=== PATIENT | male | born 1965 | race African-American/Black ===

== ENCOUNTER 2017-02-14 15:36 | Inpatient (IN) | payer OTHER ==
[2017-02-14 18:05] VITALS: BMI 29.0
--- NOTE | 2017-02-14 20:15 | HP ---
CIWA Score - CIWA Score Nausea/Vomitin-Mild Nausea/No Vomiting Muscle Tremors: 3 Anxiety: 2 Agitation: 2 Paroxysmal Sweats: 1-Minimal Palms Moist Orientation: 2-Disoriented Date<2 days Tacttile Disturbances: 0-None Auditory Disturbances: 0-None Visual Disturbances: 0-None Headache: 3-Moderate CIWA-Ar Total Score: 14 Admission ROS BHS - HPI Chief Complaint: WITHDRAWAL SX Allergies/Adverse Reactions: Allergies Allergy/AdvReac Type Severity Reaction Status Date / Time No Known Allergies Allergy Verified 02/14/17 20:11 History of Present Illness: 51 YEARS OLD MALE WITH LONG HISTORY OF ALCOHOL NICOTINE COCAINE MARIJUANA DEPENDENCE HAS POSITIVE PPD, CANE AMBULATION SINCE 2004 FROM FALL LEFT ANKLE INJURY HAS DEPRESSION IS ADMITTED TO DETOX Exam Limitations: No Limitations - Ebola screening Have you traveled outside of the country in the last 21 days: No Have you had contact with anyone from an Ebola affected area: No Have you been sick,other than usual withdrawal symptoms: No Do you have a fever: No - Review of Systems Constitutional: Chills, Changes in sleep, Weight Stable EENT: reports: No Symptoms Reported Respiratory: reports: No Symptoms reported Cardiac: reports: No Symptoms Reported GI: reports: Nausea, Poor Fluid Intake, Abdominal cramping : reports: No Symptoms Reported Musculoskeletal: reports: Back Pain, Joint Pain (LEFT ANKLE), Muscle Weakness ( LEFT LEG) Integumentary: reports: No Symptoms Reported Neuro: reports: Tremors Endocrine: reports: No Symptoms Reported Hematology: reports: No Symptoms Reported Psychiatric: reports: Judgement Intact, Depressed Other Systems: Reviewed and Negative Patient History - Patient Medical History Hx Anemia: No Hx Asthma: No Hx Chronic Obstructive Pulmonary Disease (COPD): No Hx Cancer: No Hx Cardiac Disorders: No Hx Congestive Heart Failure: No Hx Hypertension: No Hx Hypercholesterolemia: No Hx Pacemaker: No HX Cerebrovascular Accident: No Hx Seizures: No Hx Dementia: No Hx Diabetes: No Hx Gastrointestinal Disorders: No Hx Liver Disease: No Hx Sexually Transmitted Disorders: No Hx Renal Disease (ESRD): No Hx Thyroid Disease: No Hx Human Immunodeficiency Virus (HIV): No Hx Hepatitis C: No Hx Depression: Yes Hx Suicide Attempt: No Hx Bipolar Disorder: No Hx Schizophrenia: No - Patient Surgical History Past Surgical History: Yes Hx Cholecystectomy: Yes (1990) Hx Orthopedic Surgery: Yes Anesthesia Reaction: No - PPD History Previous Implant?: Yes Documented Results: Positive w/o proof Implanted On Prior [facility] Admission?: No PPD to be Administered?: No - Smoking Cessation Smoking history: Current every day smoker Have you smoked in the past 12 months: Yes Aproximately how many cigarettes per day: 6 Cigars Per Day: 0 Hx Chewing Tobacco Use: No Initiated information on smoking cessation: Yes 'Breaking Loose' booklet given: 02/14/17 - Substance & Tx. History Hx Alcohol Use: Yes Hx Substance Use: Yes Substance Use Type: Alcohol, Cocaine, Marijuana Hx Substance Use Treatment: Yes - Substances Abused Alcohol Route: Oral Frequency: Daily Amount used: PINT VOLKA Age of first use: 11 Date of Last Use: 02/14/17 Family Disease History - Family Disease History Family History: Denies Family Disease History: Other: Father (NO CONTACT) Admission Physical Exam BHS - Vital Signs Vital Signs: Vital Signs - 24 hr 02/14/17 18:03 Temperature 96.7 F L Pulse Rate 74 Respiratory 18 Rate Blood Pressure 136/90 - Physical General Appearance: Yes: Nourished, Appropriately Dressed, Mild Distress, Tremorous, Irritable, Sweating, Anxious HEENTM: Yes: Hearing grossly Normal, Normal ENT Inspection, Normocephalic, Normal Voice Respiratory: Yes: Chest Non-Tender, Lungs Clear, Normal Breath Sounds, No Respiratory Distress, No Accessory Muscle Use Neck: Yes: Supple, Trachea in good position Breast: Yes: Breasts Symetrical Cardiology: Yes: Regular Rhythm, Regular Rate, S1, S2 Abdominal: Yes: Non Tender, Soft Genitourinary: Yes: Within Normal Limits Back: Yes: Normal Inspection Musculoskeletal: Yes: Gait Steady (CANE), Back pain, Muscle Pain (LEFT ANKLE) Extremities: Yes: Non-Tender, Tremors, Swelling (LEFT ANKLE) Neurological: Yes: Alert, Normal Response, Depressed Affect Integumentary: Yes: Warm Lymphatic: Yes: Within Normal Limits - Diagnostic (1) Alcohol dependence with uncomplicated withdrawal Current Visit: Yes Status: Acute (2) Cocaine dependence, uncomplicated Current Visit: Yes Status: Acute (3) Cannabis dependence, uncomplicated Current Visit: Yes Status: Acute (4) Positive PPD, treated Current Visit: Yes Status: Resolved (5) Use of cane as ambulatory aid Current Visit: Yes Status: Chronic (6) Nicotine dependence Current Visit: Yes Status: Acute Qualifiers: Nicotine product type: cigarettes Substance use status: in withdrawal Qualified Code(s): F17.213 - Nicotine dependence, cigarettes, with withdrawal (7) Depression (emotion) Current Visit: Yes Status: Suspected Qualifiers: Depression Type: dysthymia Qualified Code(s): F34.1 - Dysthymic disorder Cleared for Admission [facility] - Detox or Rehab [facility] Level of Care: Medically Managed Detox Regimen/Protocol: Librium S Breath Alcohol Content Breath Alcohol Content: 0 Urine Drug Screen - Results Drug Screen Negative: No Urine Drug Screen Results: THC-Marijuana, DEWAYNE-Cocaine
[2017-02-14] MEDS ORDERED: MAGNESIUM CITRATE 300 ML BOTTLE PO PRN (20:20)
[2017-02-14] MEDS ORDERED: LOPERAMIDE HCL 2 MG CAPSULE PO PRN (20:20)
[2017-02-14] MEDS ORDERED: hydrOXYzine PAMOATE 50 MG CAPSULE (FP) PO PRN (20:20)
[2017-02-14] MEDS ORDERED: chlordiazePOXIDE HCL 25 MG CAPSULE PO PRN (20:20)
[2017-02-14] MEDS ORDERED: diphenhydrAMINE HCL 50 MG CAPSULE PO PRN (20:20)
[2017-02-14] MEDS ORDERED: MAG HYDROX/AL HYDROX/SIMETH 30 ML UNIT-DOSE CUP PO PRN (20:20)
[2017-02-14] MEDS ORDERED: NICOTINE POLACRILEX 2 MG GUM BC PRN (20:20)
[2017-02-14] MEDS ORDERED: guaiFENesin/D-METHORPHAN HB 10 ML UNIT-DOSE CUPS PO PRN (20:20)
[2017-02-14] MEDS ORDERED: MENTHOL/PHENOL 1 EACH UD MM PRN (20:20)
[2017-02-14] MEDS ORDERED: P-EPHED 60MG/TRIPROLIDI 2.5MG TABLET PO PRN (20:20)
[2017-02-14] MEDS ORDERED: MAGNESIUM HYDROX 2400MG/30ML ORAL SUSPENSION 30 ML CUP PO PRN (20:20)
[2017-02-14] MEDS ORDERED: IBUPROFEN 400 MG TABLET (FP) PO PRN (20:20)
[2017-02-14] MEDS: ACETAMINOPHEN 325 MG TABLET (FP) PO PRN (21:19)
[2017-02-14] MEDS: chlordiazePOXIDE HCL 25 MG CAPSULE PO SCH (23:46)
[2017-02-14] MEDS: THIAMINE HCL 100 MG TABLET (FP) PO SCH (23:48)
[2017-02-15] MEDS: chlordiazePOXIDE HCL 25 MG CAPSULE PO SCH ×4 (06:18→22:29)
[2017-02-15] MEDS: ACETAMINOPHEN 325 MG TABLET (FP) PO PRN ×2 (06:18→17:52)
[2017-02-15 09:53] LABS: ALBUMIN 3.3 g/dl (3.4-5.0); ANION GAP 5 (8-16); CALCIUM 8.1 mg/dL (8.5-10.1); CO2 28 mmol/L (21-32); GLUCOSE,RANDOM 105 mg/dL (74-106)
[2017-02-15 09:54] LABS: MCH 29.5 pg (25.7-33.7); MCHC 33.5 g/dl (32.0-35.9); MEAN CELL VOLUME 88.2 fl (80-96); MEAN PLT VOLUME 9.2 fl (7.5-11.1); PLATELET COUNT 146 K/MM3 (134-434); RDW 13.8 % (11.9-15.9); WHITE BLOOD COUNT 4.1 K/mm3 (4.0-10.0)
[2017-02-15 09:57] LABS: ALK PHOS 80 U/L (45-117); BILIRUBIN,TOTAL 0.2 mg/dL (0.2-1.0); COCKROFT - GAULT 119.97; CREATININE 0.9 mg/dL (0.7-1.3); SGOT/AST 13 U/L (15-37); SGPT/ALT 12 U/L (12-78); TOT PROT 6.4 g/dl (6.4-8.2)
[2017-02-15 10:08] LABS: URINE APPEARANCE CLEAR; URINE BILIRUBIN NEGATIVE (NEGATIVE); URINE COLOR STRAW; URINE GLUCOSE (UA) NEGATIVE (NEGATIVE); URINE KETONE NEGATIVE (NEGATIVE); URINE LEUK ESTERASE NEGATIVE (NEGATIVE); URINE NITRITE NEGATIVE (NEGATIVE); URINE PROTEIN NEGATIVE (NEGATIVE); URINE UROBILINOGEN NEGATIVE E.U./dl (0.2-1.0)
--- NOTE | 2017-02-15 10:20 | PN ---
[facility] CIWA - CIWA Score Nausea/Vomitin Muscle Tremors: 3 Anxiety: 3 Agitation: 2 Paroxysmal Sweats: 1-Minimal Palms Moist Orientation: 0-Oriented Tacttile Disturbances: 1-Very Mild Itch/Numbness Auditory Disturbances: 1-Very Mild Visual Disturbances: 1-Very Mild Sensitivity Headache: 2-Mild CIWA-Ar Total Score: 17 BHS Progress Note (SOAP) Subjective: ALERT,IRRITABLE,ANXIOUS.INTERRUPTED SLEEP,TREMOR Objective: 02/15/17 10:18 Vital Signs Temperature 97.3 F L 02/15/17 10:08 Pulse Rate 63 02/15/17 10:08 Respiratory Rate 20 02/15/17 10:08 Blood Pressure 142/81 02/15/17 10:08 O2 Sat by Pulse Oximetry (%) EKG SINUS BRADYCARDIA 55/MIN NO CHEST PAIN,NO SOB,NO DIZZINESS Laboratory Last Values WBC 4.1 K/mm3 (4.0-10.0) 02/15/17 07:00 RBC 4.22 M/mm3 (4.00-5.60) 02/15/17 07:00 Hgb 12.5 GM/dL (11.7-16.9) 02/15/17 07:00 Hct 37.2 % (35.4-49) 02/15/17 07:00 MCV 88.2 fl (80-96) 02/15/17 07:00 MCHC 33.5 g/dl (32.0-35.9) 02/15/17 07:00 RDW 13.8 % (11.9-15.9) 02/15/17 07:00 Plt Count 146 K/MM3 (134-434) 02/15/17 07:00 MPV 9.2 fl (7.5-11.1) 02/15/17 07:00 Sodium 139 mmol/L (136-145) 02/15/17 07:00 Potassium 4.0 mmol/L (3.5-5.1) 02/15/17 07:00 Chloride 106 mmol/L (98-107) 02/15/17 07:00 Carbon Dioxide 28 mmol/L (21-32) 02/15/17 07:00 Anion Gap 5 (8-16) L 02/15/17 07:00 BUN 11 mg/dL (7-18) 02/15/17 07:00 Creatinine 0.9 mg/dL (0.7-1.3) 02/15/17 07:00 Creat Clearance w eGFR > 60 (>60) 02/15/17 07:00 Random Glucose 105 mg/dL (74-106) 02/15/17 07:00 Calcium 8.1 mg/dL (8.5-10.1) L 02/15/17 07:00 Total Bilirubin 0.2 mg/dL (0.2-1.0) 02/15/17 07:00 AST 13 U/L (15-37) L 02/15/17 07:00 ALT 12 U/L (12-78) 02/15/17 07:00 Alkaline Phosphatase 80 U/L (45-117) 02/15/17 07:00 Total Protein 6.4 g/dl (6.4-8.2) 02/15/17 07:00 Albumin 3.3 g/dl (3.4-5.0) L 02/15/17 07:00 LABS PENDING Assessment: 02/15/17 10:20 WITHDRAWAL SYMPTOM Plan: CONTINUE DETOX
[2017-02-15] MEDS: PRENATAL VITAMINS W/ FOLIC ACID TABLET (FP) PO SCH (10:30)
[2017-02-15] MEDS: NICOTINE 14 MG/24 HOURS TOPICAL PATCH TD SCH (10:30)
--- NOTE | 2017-02-15 10:54 | CONSULT ---
[facility] Psychiatric Consult - Data Date of interview: 02/15/17 Admission source: [facility] Identifying data: First admission to [facility] for this 51 y/o AA male seeking detox for alcohol,cocaine (crack) and marijuana dependence.Patient is , a father of three,domiciled,unemployed/disabled (fall from a ladder) and supported on SSI benefits. Substance Abuse History: - Smoking Cessation. Smoking history: Current every day smoker. Have you smoked in the past 12 months: Yes. Aproximately how many cigarettes per day: 6. Cigars Per Day: 0. Hx Chewing Tobacco Use: No. Initiated information on smoking cessation: Yes. 'Breaking Loose' booklet given : 02/14/17. - Substance & Tx. History. Hx Alcohol Use: Yes. Hx Substance Use : Yes. Substance Use Type: Alcohol, Cocaine, Marijuana. Hx Substance Use Treatment: Yes. - Substances Abused. Alcohol. Route: Oral. Frequency: Daily. Amount used: PINT VOLKA. Age of first use: 11. Date of Last Use: 02/14. Confirmed by patient. Medical History: History of orthosurgery for fracture of left ankle.Ambulates with a cane. Psychiatric History: Past history of a psychiatric hospitalization at [facility].Diagnosed with MDD.Was prescribed lexapro and trazodone (doses not recalled).Lost to follow up for past seven months.Mr Rangel used to get his outpatient psychiatric services at the [facility] organization,in the [place].He denies history of suicide attempts. Physical/Sexual Abuse/Trauma History: Patient denies. Additional Comment: Urine Drug Screen Results: THC-Marijuana, DEWAYNE-Cocaine.Noted. Mental Status Exam - Mental Status Exam Alert and Oriented to: Time, Place, Person Cognitive Function: Good Patient Appearance: Well Groomed Mood: Hopeful, Euthymic Affect: Appropriate, Normal Range Patient Behavior: Fatigued, Appropriate, Cooperative Speech Pattern: Clear Voice Loudness: Normal Thought Process: Goal Oriented Thought Disorder: Not Present Hallucinations: Denies Suicidal Ideation: Denies Homicidal Ideation: Denies Insight/Judgement: Poor Sleep: Fair Appetite: Good Muscle strength/Tone: Normal Gait/Station: Other (moves around with a cane) Psychiatric Findings - Problem List ([place] 1, 2,3) (1) Alcohol dependence with uncomplicated withdrawal Current Visit: Yes Status: Acute (2) Cannabis dependence, uncomplicated Current Visit: Yes Status: Acute (3) Cocaine dependence, uncomplicated Current Visit: Yes Status: Acute (4) Nicotine dependence Current Visit: Yes Status: Acute Qualifiers: Nicotine product type: cigarettes Substance use status: in withdrawal Qualified Code(s): F17.213 - Nicotine dependence, cigarettes, with withdrawal (5) Substance induced mood disorder Current Visit: Yes Status: Acute (6) Positive PPD, treated Current Visit: Yes Status: Resolved (7) Use of cane as ambulatory aid Current Visit: Yes Status: Chronic (8) Insomnia Current Visit: Yes Status: Acute - Initial Treatment Plan Initial Treatment Plan: Psychoeducation.Detoxification in progress.Medications ( patient's request) : trazodone 50 mg po hs.Patient is made aware of risk for priapism.He reports no prior history of adverse events from trazodone.Agrees with this careplan.Observation.
[2017-02-15 10:58] LABS: URINE BLOOD 1+ (NEGATIVE)
[2017-02-15 11:01] LABS: URINE MUCUS RARE; URINE RBC 1 /hpf (0-3); URINE WBC 1 /hpf (3-5)
--- NOTE | 2017-02-15 13:10 | EKG ---
Test Reason : Blood Pressure : / mmHG Vent. Rate : 055 BPM Atrial Rate : 055 BPM P-R Int : 124 ms QRS Dur : 088 ms QT Int : 460 ms P-R-T Axes : 051 048 047 degrees QTc Int : 440 ms SINUS BRADYCARDIA OTHERWISE NORMAL ECG NO PREVIOUS ECGS AVAILABLE BASELINE ARTIFACT Confirmed by DOMINICK DELUNA, LATIA ([id number]) on 02/15/2017 1:10:33 PM Referred By: Confirmed By:LATIA TAN MD
[2017-02-15] MEDS ORDERED: traZODone HCL 50 MG TABLET (FP) PO SCH (22:00)
[2017-02-15] MEDS: THIAMINE HCL 100 MG TABLET (FP) PO SCH (22:29)
[2017-02-16] MEDS: ACETAMINOPHEN 325 MG TABLET (FP) PO PRN ×3 (05:39→22:41)
[2017-02-16] MEDS: chlordiazePOXIDE HCL 25 MG CAPSULE PO SCH ×3 (05:41→17:44)
--- NOTE | 2017-02-16 10:06 | PN ---
S CIWA - CIWA Score Nausea/Vomitin Muscle Tremors: 3 Anxiety: 3 Agitation: 2 Paroxysmal Sweats: 2 Orientation: 0-Oriented Tacttile Disturbances: 1-Very Mild Itch/Numbness Auditory Disturbances: 1-Very Mild Visual Disturbances: 1-Very Mild Sensitivity Headache: 2-Mild CIWA-Ar Total Score: 18 BHS Progress Note (SOAP) Subjective: ALERT,IRRITABLE,ANXIOUS,INTERRUPTED SLEEP,TREMOR Objective: 02/16/17 10:04 Vital Signs Temperature 97.5 F L 02/16/17 05:51 Pulse Rate 61 02/16/17 05:51 Respiratory Rate 16 02/16/17 05:51 Blood Pressure 128/67 02/16/17 05:51 O2 Sat by Pulse Oximetry (%) Laboratory Last Values WBC 4.1 K/mm3 (4.0-10.0) 02/15/17 07:00 RBC 4.22 M/mm3 (4.00-5.60) 02/15/17 07:00 Hgb 12.5 GM/dL (11.7-16.9) 02/15/17 07:00 Hct 37.2 % (35.4-49) 02/15/17 07:00 MCV 88.2 fl (80-96) 02/15/17 07:00 MCHC 33.5 g/dl (32.0-35.9) 02/15/17 07:00 RDW 13.8 % (11.9-15.9) 02/15/17 07:00 Plt Count 146 K/MM3 (134-434) 02/15/17 07:00 MPV 9.2 fl (7.5-11.1) 02/15/17 07:00 Sodium 139 mmol/L (136-145) 02/15/17 07:00 Potassium 4.0 mmol/L (3.5-5.1) 02/15/17 07:00 Chloride 106 mmol/L (98-107) 02/15/17 07:00 Carbon Dioxide 28 mmol/L (21-32) 02/15/17 07:00 Anion Gap 5 (8-16) L 02/15/17 07:00 BUN 11 mg/dL (7-18) 02/15/17 07:00 Creatinine 0.9 mg/dL (0.7-1.3) 02/15/17 07:00 Creat Clearance w eGFR > 60 (>60) 02/15/17 07:00 Random Glucose 105 mg/dL (74-106) 02/15/17 07:00 Calcium 8.1 mg/dL (8.5-10.1) L 02/15/17 07:00 Total Bilirubin 0.2 mg/dL (0.2-1.0) 02/15/17 07:00 AST 13 U/L (15-37) L 02/15/17 07:00 ALT 12 U/L (12-78) 02/15/17 07:00 Alkaline Phosphatase 80 U/L (45-117) 02/15/17 07:00 Total Protein 6.4 g/dl (6.4-8.2) 02/15/17 07:00 Albumin 3.3 g/dl (3.4-5.0) L 02/15/17 07:00 Urine Color Straw 02/15/17 08:20 Urine Appearance Clear 02/15/17 08:20 Urine pH 6.0 (5.0-8.0) 02/15/17 08:20 Ur Specific [employer] 1.017 (1.001-1.035) 02/15/17 08:20 Urine Protein Negative (NEGATIVE) 02/15/17 08:20 Urine Glucose (UA) Negative (NEGATIVE) 02/15/17 08:20 Urine Ketones Negative (NEGATIVE) 02/15/17 08:20 Urine Blood 1+ (NEGATIVE) H 02/15/17 08:20 Urine Nitrite Negative (NEGATIVE) 02/15/17 08:20 Urine Bilirubin Negative (NEGATIVE) 02/15/17 08:20 Urine Urobilinogen Negative E.U./dl (0.2-1.0) 02/15/17 08:20 Ur Leukocyte Esterase Negative (NEGATIVE) 02/15/17 08:20 Urine RBC 1 /hpf (0-3) 02/15/17 08:20 Urine WBC 1 /hpf (3-5) 02/15/17 08:20 Ur Epithelial Cells Rare /hpf (FEW) 02/15/17 08:20 Urine Mucus Rare 02/15/17 08:20 RPR Titer Nonreactive (NONREACTIVE) 02/15/17 07:00 Assessment: 02/16/17 10:05 WITHDRAWAL SYMPTOM Plan: CONTINUE DETOX
[2017-02-16] MEDS: NICOTINE 14 MG/24 HOURS TOPICAL PATCH TD SCH (10:48)
[2017-02-16] MEDS: PRENATAL VITAMINS W/ FOLIC ACID TABLET (FP) PO SCH (10:48)
--- NOTE | 2017-02-16 14:49 | PN ---
[facility] Progress Note Note: Psychiatry Attendings's note : Called to see patient. Issue :wants trazodone 100 mg/hs. Met briefly with Mr Juan Carlos. Reports trazodone not effective at 50 mg/hs. Insists on getting back to his usual dose of 100 mg/hs. Plan : Discontinue trazodone 50 mg po hs. Start trazodone 1oo mg po hs. Reminded of priapism as a rare but potential side effect. Benign hospital course.Stable mental status.Uneventful detox. Patient is in agreement with this careplan.
[2017-02-16] MEDS: traZODone HCL 100 MG TABLET (FP) PO SCH (22:39)
[2017-02-16] MEDS: THIAMINE HCL 100 MG TABLET (FP) PO SCH (22:40)
[2017-02-16] MEDS: chlordiazePOXIDE 5 MG CAPSULE PO SCH (23:39)
[2017-02-17] MEDS: chlordiazePOXIDE 5 MG CAPSULE PO SCH ×3 (05:57→17:59)
[2017-02-17] MEDS: ACETAMINOPHEN 325 MG TABLET (FP) PO PRN ×3 (05:59→22:36)
[2017-02-17] MEDS: PRENATAL VITAMINS W/ FOLIC ACID TABLET (FP) PO SCH (10:44)
[2017-02-17] MEDS: NICOTINE 14 MG/24 HOURS TOPICAL PATCH TD SCH (10:44)
--- NOTE | 2017-02-17 11:20 | PN ---
S Progress Note (SOAP) Subjective: ALERT,IRRITABLE,ANXIOUS,INTERRUPTED SLEEP Objective: 02/17/17 11:19 Vital Signs Temperature 97.9 F 02/17/17 09:52 Pulse Rate 68 02/17/17 09:52 Respiratory Rate 20 02/17/17 09:52 Blood Pressure 144/83 02/17/17 09:52 O2 Sat by Pulse Oximetry (%) Assessment: 02/17/17 11:19 WITHDRAWAL SYMPTOM Plan: CONTINUE DETOX
[2017-02-17] MEDS: traZODone HCL 100 MG TABLET (FP) PO SCH (22:36)
[2017-02-17] MEDS: THIAMINE HCL 100 MG TABLET (FP) PO SCH (22:36)
[2017-02-17] MEDS: chlordiazePOXIDE HCL 10 MG CAPSULE PO SCH (23:46)
[2017-02-18] MEDS: chlordiazePOXIDE HCL 10 MG CAPSULE PO SCH (05:50)
[2017-02-18 06:14] VITALS: BP 105/54; PULSE 62; TEMP 97.9
--- NOTE | 2017-02-18 08:04 | PN ---
S Progress Note (SOAP) Subjective: ALERT,NO COMPLAINT Objective: 02/18/17 08:03 Vital Signs Temperature 97.9 F 02/18/17 06:13 Pulse Rate 62 02/18/17 06:13 Respiratory Rate 18 02/18/17 06:13 Blood Pressure 105/54 02/18/17 06:13 O2 Sat by Pulse Oximetry (%) Assessment: 02/18/17 08:03 DETOX COMPLETED,NO WITHDRAWAL SYMPTOM Plan: DISCHARGE TODAY,FOLLOW UP WITH AFTER CARE PROGRAM ARRANGEMENT
--- NOTE | 2017-02-18 08:09 | DS ---
[facility] Detox Discharge Summary Admission Date: 02/14/17 Discharge Date: 02/18/17 - History Present History: Alcohol Dependence, Cocaine Dependence Additional Comments: FOLLOW UP WITH AFTER CARE PROGRAM ARRANGEMENT Pertinent Past History: NICOTINE DEPENDENCE - Physical Exam Results Vital Signs: Vital Signs Temperature 97.9 F 02/18/17 06:13 Pulse Rate 62 02/18/17 06:13 Respiratory Rate 18 02/18/17 06:13 Blood Pressure 105/54 02/18/17 06:13 O2 Sat by Pulse Oximetry (%) Pertinent Admission Physical Exam Findings: WITHDRAWAL SYMPTOM - Treatment Hospital Course: Detox Protocol Followed, Detoxed Safely, Responded well, Discharged Condition Good - Medication Discharge Medications: Ambulatory Orders Trazodone HCl 100 mg PO HS #30 tablet 02/15/17 - Diagnosis (1) Alcohol dependence with uncomplicated withdrawal Current Visit: Yes Status: Acute (2) Cannabis dependence, uncomplicated Current Visit: Yes Status: Acute (3) Cocaine dependence, uncomplicated Current Visit: Yes Status: Acute (4) Insomnia Current Visit: Yes Status: Acute (5) Nicotine dependence Current Visit: Yes Status: Acute Qualifiers: Nicotine product type: cigarettes Substance use status: in withdrawal Qualified Code(s): F17.213 - Nicotine dependence, cigarettes, with withdrawal (6) Positive PPD, treated Current Visit: Yes Status: Resolved - AMA Did Patient Leave Against Medical Advice: No
[2017-02-18] MEDS: ACETAMINOPHEN 325 MG TABLET (FP) PO PRN (09:38)
== END 2017-02-18 10:41 | disposition home or self-care (01) | DRG 774 ==
LOC: YASAS 15:36 → Y6N 20:17
PROVIDERS: ADMIT Internal Medicine Addiction Medicine; ATTEND Internal Medicine Addiction Medicine
PROC: HZ2ZZZZ Detoxification Services for Substance Abuse Treatment (ICD-10-PCS; principal; 2017-02-18)
DX: F10.230 Alcohol dependence with withdrawal, uncomplicated (principal); F14.20 Cocaine dependence, uncomplicated; F12.20 Cannabis dependence, uncomplicated; F17.213 Nicotine dependence, cigarettes, with withdrawal; G47.00 Insomnia, unspecified; F19.24 Other psychoactive substance dependence with psychoactive substance-induced mood disorder; F34.1 Dysthymic disorder; R76.11 Nonspecific reaction to tuberculin skin test without active tuberculosis; R26.2 Difficulty in walking, not elsewhere classified
CPT/HCPCS: 36415; 71020-TC; 80053; 81003; 81015; 85027; 86593; 93005; 93010